=== PATIENT | female | born 1955 | race Caucasian/White ===

== ENCOUNTER 2024-03-14 02:23 | Day surgery (SDC) | payer MEDICARE, SELFPAY ==
[2024-02-28 09:57] VITALS: BMI 33.0
[2024-03-14 06:26] VITALS: BP 109/84; PULSE 77; RESP 18; TEMP 36.2; O2SAT 100
[2024-03-14] MEDS: LACTATED RINGERS 1,000 ML 150 ML IV CONT (06:39)
--- NOTE | 2024-03-14 07:24 | WPDANESEPPF ---
Anes - Initial Pre Proc Eval Procedure: Operation Date: 03/14/24 07:30 Proposed Procedures p Colonoscopy - Gary Trujillo MD Date/Time: 03/14/24 07:24 Surgeon: Gary Trujillo MD Pre Op Diagnosis: Fam. Hx. colon CA Patient Data Age: 69 Gender: F Height: 1.57 m Weight: 79.3 kg Last Vital Signs Temp 97.1 F L 03/14/24 06:26 Pulse 77 03/14/24 06:26 Resp 18 03/14/24 06:26 BP 109/84 03/14/24 06:26 Pulse Ox 100 03/14/24 06:26 O2 Del Method Room Air 03/14/24 06:26 Allergies Allergy/AdvReac Type Severity Reaction Status Date / Time oxycodone Allergy Itching Verified 03/14/24 06:24 Home Medications Medication Instructions Recorded Confirmed Type amitriptyline 10 mg tablet 10 mg PO HS 02/28/24 02/28/24 History calcium 250 mg tablet 250 mg PO DAILY 02/28/24 02/28/24 History cholecalciferol (vitamin D3) 50 50 mcg PO DAILY 02/28/24 02/28/24 History mcg (2,000 unit) tablet (Vitamin D3) diltiazem HCl 360 mg 360 mg PO DAILY 02/28/24 02/28/24 History capsule,extended release 24 hr famotidine 20 mg tablet (Pepcid) 20 mg PO HS 02/28/24 02/28/24 History ferrous sulfate 27 mg iron tablet 27 mg PO TID 02/28/24 02/28/24 History flaxseed oil 1,000 mg capsule 1,000 mg PO DAILY 02/28/24 02/28/24 History ipratropium bromide 42 mcg (0.06 1 spray intranasal QID 02/28/24 02/28/24 History %) nasal spray loratadine 10 mg capsule 10 mg PO DAILY 02/28/24 02/28/24 History montelukast 10 mg tablet 10 mg PO HS 02/28/24 02/28/24 History omega-3 fatty acids 1 cap PO DAILY 02/28/24 02/28/24 History omeprazole 40 mg capsule,delayed 40 mg PO DAILY 02/28/24 02/28/24 History release potassium citrate 99 mg capsule 99 mg PO DAILY 02/28/24 02/28/24 History rosuvastatin 10 mg tablet 10 mg PO HS 02/28/24 02/28/24 History venlafaxine 75 mg capsule,extended 75 mg PO DAILY 02/28/24 02/28/24 History release 24 hr vitamin E 50 unit capsule 50 unit PO DAILY 02/28/24 02/28/24 History vitamin K2 100 mcg capsule 100 mcg PO DAILY 02/28/24 02/28/24 History acetaminophen 500 mg tablet See Rx Instructions .Route 03/07/24 03/07/24 History .COMPLEX PRN Pain magnesium 250 mg tablet 250 mg PO DAILY 03/07/24 03/07/24 History Patient hx anesthesia problems: none Family hx anesthesia problems: none Results Review: All pre-operative results and documents have been reviewed as part of the pre-operative evaluation. [facility] Social History Social History Smoking status: Former smoker Tobacco type: cigarettes Substance use type: does not use Living arrangements: with family Spiritual care concerns: No Anes - Eval Final PreProcedure Day of Procedure 03/14/24 07:24 Patient weight: obese Heart: regular rate and rhythm Lungs: clear to auscultation Airway: Mallampati scale class II Neurological: alert and oriented Last oral intake: >/= 8 hours ASA classification: III Emergent: no Anesthetic plan: proceed Anesthesia type and monitoring: general GIVS and standard monitoring Results Review: All pre-operative results and documents have been reviewed as part of the pre-operative evaluation. Informed Consent: The patient's anesthetic plan and its attendant risks and benefits were discussed with the patient/family/POA. Questions were solicited and answers provided to the satisfaction of the patient/family/POA.
--- NOTE | 2024-03-14 07:27 | PM.HPGS ---
History of Present Illness History of Present Illness Consent: Risks, benefits, and alternatives have been discussed and questions answered. Patient agrees to proceed with procedure. Chief complaint: Fam. Hx. colon CA Narrative: Jeanie Arzola is a 69 year old female with last colonoscopy 6 years ago, sister had colon cancer Review of Systems Review of Systems: All systems reviewed & are unremarkable except as noted in HPI and below PMFSH Past Medical History Medical History (Updated 03/14/24 @ 07:27 by Gary Trujillo MD) Family history of colon cancer Social History Social History Smoking status: Former smoker Tobacco type: cigarettes Substance use type: does not use Living arrangements: with family Spiritual care concerns: No Meds Home Medications and Allergies Home Medications Medication Instructions Recorded Confirmed Type amitriptyline 10 mg tablet 10 mg PO HS 02/28/24 02/28/24 History calcium 250 mg tablet 250 mg PO DAILY 02/28/24 02/28/24 History cholecalciferol (vitamin D3) 50 50 mcg PO DAILY 02/28/24 02/28/24 History mcg (2,000 unit) tablet (Vitamin D3) diltiazem HCl 360 mg 360 mg PO DAILY 02/28/24 02/28/24 History capsule,extended release 24 hr famotidine 20 mg tablet (Pepcid) 20 mg PO HS 02/28/24 02/28/24 History ferrous sulfate 27 mg iron tablet 27 mg PO TID 02/28/24 02/28/24 History flaxseed oil 1,000 mg capsule 1,000 mg PO DAILY 02/28/24 02/28/24 History ipratropium bromide 42 mcg (0.06 1 spray intranasal QID 02/28/24 02/28/24 History %) nasal spray loratadine 10 mg capsule 10 mg PO DAILY 02/28/24 02/28/24 History montelukast 10 mg tablet 10 mg PO HS 02/28/24 02/28/24 History omega-3 fatty acids 1 cap PO DAILY 02/28/24 02/28/24 History omeprazole 40 mg capsule,delayed 40 mg PO DAILY 02/28/24 02/28/24 History release potassium citrate 99 mg capsule 99 mg PO DAILY 02/28/24 02/28/24 History rosuvastatin 10 mg tablet 10 mg PO HS 02/28/24 02/28/24 History venlafaxine 75 mg capsule,extended 75 mg PO DAILY 02/28/24 02/28/24 History release 24 hr vitamin E 50 unit capsule 50 unit PO DAILY 02/28/24 02/28/24 History vitamin K2 100 mcg capsule 100 mcg PO DAILY 02/28/24 02/28/24 History acetaminophen 500 mg tablet See Rx Instructions .Route 03/07/24 03/07/24 History .COMPLEX PRN Pain magnesium 250 mg tablet 250 mg PO DAILY 03/07/24 03/07/24 History Allergies Allergy/AdvReac Type Severity Reaction Status Date / Time oxycodone Allergy Itching Verified 03/14/24 06:24 Vital Signs Vital Signs - 24 hr 03/14/24 06:26 Temperature 97.1 F L Pulse Rate 77 Respiratory Rate 18 Blood Pressure 109/84 Pulse Oximetry 100 Oxygen Delivery Room Air Exam Const: General: comfortable and no acute distress HENMT: Face/Nose/Sinus: Normal nares present Eyes: General: appearance normal, both eyes and all related structures Neck: Neck: no JVD Resp: Auscultation: clear to auscultation bilaterally Cardio: Rate: regular rate Rhythm: regular rhythm GI: Inspection: non-distended GI Palp: Yes Soft to palpation Skin: General skin exam: normal color Neuro: General: gait normal Speech: normal speech Extrem: General: normal to inspection Psych: Mental Status: mental status grossly normal Assessment and Plan Assessment and plan (1) Family history of colon cancer: Code(s): Z80.0 - Family history of malignant neoplasm of digestive organs Status: Acute Assessment and Plan: colonoscopy
[2024-03-14 07:50] VITALS: BP 108/67; PULSE 83; RESP 17; O2SAT 98
[2024-03-14 08:00] VITALS: BP 131/81; PULSE 81; RESP 17; O2SAT 97
[2024-03-14 08:10] VITALS: BP 141/80; PULSE 79; RESP 11; O2SAT 97
== END 2024-03-14 08:18 | disposition home or self-care (01) ==
PROVIDERS: PCP Family Medicine; Visit Provider Internal Medicine Gastroenterology
PROC: 0DJD8ZZ Inspection of Lower Intestinal Tract, Via Natural or Artificial Opening Endoscopic (ICD-10-PCS; CPT 45378; principal; 2024-03-14 07:30)
DX: Z12.11 Encounter for screening for malignant neoplasm of colon (principal); K57.30 Diverticulosis of large intestine without perforation or abscess without bleeding; E66.9 Obesity, unspecified; Z68.32 Body mass index [BMI] 32.0-32.9, adult; Z87.891 Personal history of nicotine dependence; Z80.0 Family history of malignant neoplasm of digestive organs
CPT/HCPCS: G0105; J2704; J7120